=== PATIENT | male | born 1960 | race Caucasian/White ===

== ENCOUNTER 2023-12-17 12:35 | Inpatient (IN) | payer BC ==
[2023-12-17] VITALS (20 sets, daily range): BP systolic 92–134; BP diastolic 71–96; PULSE 34–146; RESP 19–35; TEMP 98.3–99.2; O2SAT 93–99
[~2023-12-17] VITALS: Ht 172.7 cm; Wt 93.0 kg
[2023-12-17] MEDS ORDERED: DILTIAZEM HCL VIAL 5 ML ONE (12:50)
[2023-12-17] MEDS ORDERED: SODIUM CHLORIDE 0.9% 1000ML 1,000 ML ONE (12:57)
[2023-12-17] MEDS: METOPROLOL TARTRATE 25 MG TAB PO ONE (13:09)
[2023-12-17 13:25] LABS: BASOPHILS # (AUTO) 0.1 (0.0-0.1); BASOPHILS % 0.5 % (0.0-1.0); EOSINOPHILS % 0.2 % (0.0-6.0); HEMATOCRIT 39.5 % (38.2-49.6); HEMOGLOBIN 12.9 g/dL (14.0-18.0); LYMPHOCYTES # (AUTO) 1.7 (1.0-3.2); LYMPHOCYTES % 9.4 % (18.0-39.1); MEAN CORPUSCULAR HEMOGLOBIN 29.5 pg (28-32); MEAN CORPUSCULAR HGB CONC 32.7 g/dL (31-35); MEAN CORPUSCULAR VOLUME 90.2 fL (81-99); MONOCYTES % 5.8 % (4.4-11.3); NEUTROPHILS # (AUTO) 14.7 (2.1-6.9); NEUTROPHILS % 82.6 % (38.7-80.0); PLATELET COUNT 482 x10e3/uL (140-360); RED BLOOD COUNT 4.38 x10e6/uL (4.3-5.7); RED CELL DISTRIBUTION WIDTH 13.7 % (11.7-14.4); WHITE BLOOD COUNT 17.82 x10e3/uL (4.8-10.8)
[2023-12-17] MEDS: METOPROLOL TARTRATE INJ 1 MG/ML VIAL IV ONE ×2 (13:25→13:45)
[2023-12-17] MEDS: DILTIAZEM HCL 5 MG/ML 5 ML VIAL IV STA ×2 (13:38→13:39)
[2023-12-17 13:42] LABS: INR 1.07; PROTHROMBIN TIME 14.4 seconds (11.9-14.5)
[2023-12-17 13:43] LABS: PARTIAL THROMBOPLASTIN TIME 30.3 seconds (23.8-35.5)
[2023-12-17 13:47] LABS: MAGNESIUM 2.1 MG/DL (1.3-2.1)
[2023-12-17 13:49] LABS: ALBUMIN 2.3 g/dL (3.5-5.0); ALBUMIN/GLOBULIN RATIO 0.5 (0.8-2.0); ANION GAP 15.5 mmol/L (8-16); BILIRUBIN,TOTAL 0.7 mg/dL (0.2-1.2); CALCIUM 8.6 mg/dL (8.4-10.2); CREATININE, SERUM 0.84 mg/dL (0.72-1.25); POTASSIUM 3.5 mmol/L (3.5-5.1); TOTAL PROTEIN 6.8 g/dL (6.5-8.1)
[2023-12-17] MEDS ORDERED: DILTIAZEM HCL 5 MG/ML 5 ML VIAL IV PRN (14:15)
[2023-12-17] MEDS ORDERED: AMIODARONE HCL 150 MG/100 ML BAG IV ONE (14:30)
[2023-12-17] MEDS ORDERED: IOPAMIDOL 370 MG/ML 100 ML INFUS..BTL INJ ONE (14:32)
[2023-12-17] MEDS: AMIODARONE HCL 100 ML IV ONE (14:38)
[2023-12-17] MEDS: AMIODARONE 900MG 500 ML IV SCH ×2 (14:56→21:06)
[2023-12-17 15:14] LABS: TROPONIN I 0.021 ng/mL (0-0.300)
[2023-12-17] MEDS ORDERED: ONDANSETRON HCL INJ 2MG/ML 2ML 2 MG/ML VIAL IV PRN (16:30)
[2023-12-17] MEDS ORDERED: LUMIGAN2.5 M1 OP (17:24)
[2023-12-17] MEDS ORDERED: BIMATOPROST(OPTH) 2.5 ML BOTTLE OP PRN (17:30)
[2023-12-17] MEDS ORDERED: POLYETHYLENE GLYCOL 3350 17 GM PACK PO PRN (17:45)
[2023-12-17] MEDS ORDERED: ACETAMINOPHEN 325 MG TAB PO PRN (17:45)
[2023-12-17] MEDS ORDERED: METOPROLOL TARTRATE INJ 1 MG/ML VIAL IV PRN (17:45)
[2023-12-17] MEDS: ENOXAPARIN SODIUM INJ 100 MG/ML SYR SC SCH (19:19)
[2023-12-17] MEDS: MELATONIN 3 MG TAB PO PRN (20:16)
[2023-12-17] MEDS: BIMATOPROST(OPTH) 2.5 ML BOTTLE OP SCH (20:18)
[2023-12-18] VITALS (26 sets, daily range): BP systolic 97–139; BP diastolic 55–97; PULSE 64–175; RESP 20–34; TEMP 98.5–99.2; O2SAT 90–97
[2023-12-18] MEDS ORDERED: IOPAMIDOL 370 MG/ML 100 ML INFUS..BTL INJ ONE (06:40)
[2023-12-18 06:46] LABS: BASOPHILS # (AUTO) 0.1 (0.0-0.1); BASOPHILS % 0.7 % (0.0-1.0); EOSINOPHILS % 0.2 % (0.0-6.0); LYMPHOCYTES # (AUTO) 1.6 (1.0-3.2); LYMPHOCYTES % 8.8 % (18.0-39.1); MEAN CORPUSCULAR HEMOGLOBIN 29.6 pg (28-32); MEAN CORPUSCULAR HGB CONC 32.4 g/dL (31-35); MEAN CORPUSCULAR VOLUME 91.1 fL (81-99); MONOCYTES # (AUTO) 1.2 (0.2-0.8); MONOCYTES % 6.7 % (4.4-11.3); NEUTROPHILS # (AUTO) 15.1 (2.1-6.9); NEUTROPHILS % 81.9 % (38.7-80.0); PLATELET COUNT 480 x10e3/uL (140-360); RED BLOOD COUNT 4.06 x10e6/uL (4.3-5.7); RED CELL DISTRIBUTION WIDTH 14.1 % (11.7-14.4)
[2023-12-18 07:07] LABS: ANION GAP 15.8 mmol/L (8-16); CALCIUM 8.1 mg/dL (8.4-10.2); CREATININE, SERUM 0.74 mg/dL (0.72-1.25); POTASSIUM 3.8 mmol/L (3.5-5.1)
[2023-12-18 07:09] LABS: CHOL/HDL RATIO 5.1 (3.9-4.7); MAGNESIUM 2.1 MG/DL (1.3-2.1); PHOSPHORUS 2.7 MG/DL (2.3-4.7)
[2023-12-18 07:27] LABS: FREE T4 (FREE THYROXINE) 1.02 ng/dL (0.8-1.8); THYROID STIMULATING HORMONE 1.165 uIU/mL (0.350-4.940)
[2023-12-18] MEDS: DIGOXIN INJ 0.25 MG/ML 2 ML AMP IV ONE (07:57)
[2023-12-18] MEDS: DOCUSATE SODIUM 100 MG CAP PO SCH (09:24)
[2023-12-18] MEDS: METOPROLOL TARTRATE 25 MG TAB PO SCH (10:54)
[2023-12-18] MEDS: METOPROLOL TARTRATE 50 MG TAB PO SCH (14:30)
[2023-12-18] MEDS: AMIODARONE HCL 200 MG TAB PO SCH (17:11)
[2023-12-19] VITALS (18 sets, daily range): BP systolic 97–143; BP diastolic 65–79; PULSE 60–87; RESP 18–28; TEMP 97.6–99.1; O2SAT 89–99
[2023-12-19 06:43] LABS: BASOPHILS # (AUTO) 0.1 (0.0-0.1); BASOPHILS % 0.7 % (0.0-1.0); EOSINOPHILS # (AUTO) 0.2 (0.0-0.4); EOSINOPHILS % 1.3 % (0.0-6.0); HEMOGLOBIN 11.6 g/dL (14.0-18.0); LYMPHOCYTES # (AUTO) 1.3 (1.0-3.2); LYMPHOCYTES % 9.8 % (18.0-39.1); MEAN CORPUSCULAR HEMOGLOBIN 29.1 pg (28-32); MEAN CORPUSCULAR HGB CONC 31.4 g/dL (31-35); MONOCYTES # (AUTO) 1.1 (0.2-0.8); NEUTROPHILS # (AUTO) 10.3 (2.1-6.9); NEUTROPHILS % 76.1 % (38.7-80.0); PLATELET COUNT 479 x10e3/uL (140-360); RED BLOOD COUNT 3.98 x10e6/uL (4.3-5.7); RED CELL DISTRIBUTION WIDTH 14.2 % (11.7-14.4)
[2023-12-19 06:59] LABS: ANION GAP 11.4 mmol/L (8-16); CALCIUM 8.3 mg/dL (8.4-10.2); CREATININE, SERUM 0.67 mg/dL (0.72-1.25)
[2023-12-19 07:01] LABS: POTASSIUM 3.4 mmol/L (3.5-5.1)
[2023-12-19 07:01] LABS: CLARITY,URINE CLEAR (CLEAR); COLOR,URINE YELLOW (YELLOW); GLUCOSE, URINE NEGATIVE (NEGATIVE); KETONES,URINE NEGATIVE (NEGATIVE); LEUKOCYTE ESTERASE ,URINE NEGATIVE (NEGATIVE); NITRITE,URINE NEGATIVE (NEGATIVE); PH,URINE 6 (5 - 7); PROTEIN,URINE DIPSTICK NEGATIVE (NEGATIVE)
[2023-12-19 07:02] LABS: BILIRUBIN,URINE NEGATIVE (NEGATIVE); URINE UROBILINOGEN >=8 mg/dL (0.2 - 1)
[2023-12-19 07:07] LABS: BACTERIA,URINE FEW /HPF
[2023-12-19 07:09] LABS: WBC,URINE (MAN) 0-5 /HPF (0-5)
[2023-12-19 07:10] LABS: RBC,URINE 0-5 /HPF (0-5)
[2023-12-19 16:42] LABS: BILIRUBIN,URINE NEGATIVE (NEGATIVE); CLARITY,URINE CLEAR (CLEAR); COLOR,URINE YELLOW (YELLOW); GLUCOSE, URINE NEGATIVE (NEGATIVE); KETONES,URINE NEGATIVE (NEGATIVE); LEUKOCYTE ESTERASE ,URINE NEGATIVE (NEGATIVE); NITRITE,URINE NEGATIVE (NEGATIVE); PH,URINE 7 (5 - 7); PROTEIN,URINE DIPSTICK NEGATIVE (NEGATIVE); URINE UROBILINOGEN >=8 mg/dL (0.2 - 1)
[2023-12-19 16:54] LABS: BACTERIA,URINE RARE /HPF; EPITHELIAL CELLS,URINE RARE /LPF; RBC,URINE 0-5 /HPF (0-5); WBC,URINE (MAN) 0-5 /HPF (0-5)
[2023-12-19] MEDS ORDERED: SODIUM CHLORIDE 0.9% 250ML 250 ML ONE (20:51)
[2023-12-20 03:13] VITALS: BP 119/71; PULSE 76; RESP 18; TEMP 97.8; O2SAT 95
[2023-12-20 05:47] LABS: BASOPHILS # (AUTO) 0.1 (0.0-0.1); BASOPHILS % 0.9 % (0.0-1.0); EOSINOPHILS # (AUTO) 0.3 (0.0-0.4); EOSINOPHILS % 2.3 % (0.0-6.0); HEMATOCRIT 36.8 % (38.2-49.6); HEMOGLOBIN 11.4 g/dL (14.0-18.0); LYMPHOCYTES # (AUTO) 1.7 (1.0-3.2); MEAN CORPUSCULAR HEMOGLOBIN 29.2 pg (28-32); MEAN CORPUSCULAR VOLUME 94.1 fL (81-99); MONOCYTES # (AUTO) 1.1 (0.2-0.8); MONOCYTES % 8.5 % (4.4-11.3); NEUTROPHILS # (AUTO) 9.2 (2.1-6.9); NEUTROPHILS % 71.6 % (38.7-80.0); PLATELET COUNT 530 x10e3/uL (140-360); RED BLOOD COUNT 3.91 x10e6/uL (4.3-5.7); WHITE BLOOD COUNT 12.88 x10e3/uL (4.8-10.8)
[2023-12-20 06:10] LABS: ALBUMIN 1.8 g/dL (3.5-5.0); ALBUMIN/GLOBULIN RATIO 0.5 (0.8-2.0); ANION GAP 12.7 mmol/L (8-16); BILIRUBIN,TOTAL 0.5 mg/dL (0.2-1.2); CALCIUM 8.3 mg/dL (8.4-10.2); CREATININE, SERUM 0.67 mg/dL (0.72-1.25); POTASSIUM 3.7 mmol/L (3.5-5.1); TOTAL PROTEIN 5.8 g/dL (6.5-8.1)
[2023-12-20 07:39] VITALS: PULSE 71; RESP 25; O2SAT 94
[2023-12-20 08:20] VITALS: BP 124/77; PULSE 76; RESP 18; TEMP 98.2; O2SAT 94
[2023-12-20 09:28] VITALS: BP 124/60; PULSE 66; RESP 18; TEMP 98.2; O2SAT 94
[2023-12-20 12:24] VITALS: BP 113/77; PULSE 70; RESP 17; TEMP 97.9; O2SAT 94
[2023-12-20] MEDS ORDERED: AMIODARONE HCL200 MG PO (12:54)
[2023-12-20] MEDS ORDERED: METOPROLOL TART50 MG PO (12:54)
[2023-12-20] MEDS ORDERED: AUGMENTIN 500-1 EACH PO (12:54)
[2023-12-20] MEDS ORDERED: AZITHROMYCIN250 MG PO (12:54)
[2023-12-20 14:03] VITALS: PULSE 88; RESP 25; O2SAT 9
[2023-12-20] MEDS ORDERED: APIXABAN 5 MG TABLET PO SCH (18:00)
== END 2023-12-20 15:00 | disposition home or self-care (01) | DRG 871 ==
LOC: ER 12:39 → ERHOLD 14:06 → ICU 14:45 → MED/SURG2 12-19 18:21
PROVIDERS: ADMIT Internal Medicine; ATTEND Internal Medicine
PROC: 3E0333Z Introduction of Anti-inflammatory into Peripheral Vein, Percutaneous Approach (ICD-10-PCS; principal; 2023-12-17)
DX: A41.9 Sepsis, unspecified organism (principal); I50.31 Acute diastolic (congestive) heart failure; J18.9 Pneumonia, unspecified organism; E87.1 Hypo-osmolality and hyponatremia; J44.0 Chronic obstructive pulmonary disease with (acute) lower respiratory infection; I11.0 Hypertensive heart disease with heart failure; I48.91 Unspecified atrial fibrillation; E87.6 Hypokalemia; D64.9 Anemia, unspecified; G47.33 Obstructive sleep apnea (adult) (pediatric); N40.1 Benign prostatic hyperplasia with lower urinary tract symptoms; R39.198 Other difficulties with micturition; H40.9 Unspecified glaucoma; E78.5 Hyperlipidemia, unspecified; Z11.52 Encounter for screening for COVID-19; R73.9 Hyperglycemia, unspecified; F41.9 Anxiety disorder, unspecified; Z87.891 Personal history of nicotine dependence; Z82.49 Family history of ischemic heart disease and other diseases of the circulatory system; Z82.5 Family history of asthma and other chronic lower respiratory diseases
CPT/HCPCS: 36415; 71045; 71260; 80048; 80053; 80061; 81001; 83036; 83605; 83735; 83880; 84100; 84439; 84443; 84484; 85025; 85610; 85730; 87040; 87400; 87420; 93005; 93306; 94799; 99252; 99284; J1160; J1650; J2470; J2543; J7030; J7050; Q9967; U0002